=== PATIENT | male | born 1960 | race Caucasian/White ===

== ENCOUNTER 2024-12-29 22:46 | Inpatient (IN) | payer MEDICAID ==
[~2024-12-29] VITALS: Ht 162.6 cm; Wt 96.3 kg
[2024-12-29] MEDS: nitroGLYCERIN 1gm ointment UD TP ONE (23:10)
--- NOTE | 2024-12-29 23:14 | ELECTROCARDIOGRAPH REPORT ---
[facility] Test Date: 2024-12-29 Test Time: 23:12:29 Pat Name: ALEXANDRA WHITLOCK Department: [facility]-ER Patient ID: [id number] Room: Gender: M Permanent Waver: : 1960 Requested By: CHICA FERRARA Order Number: [id number] Reading MD: Measurements Intervals [place] Rate: 94 P: 54 FL: 171 QRS: -45 QRSD: 138 T: 101 QT: 396 QTc: 496 Interpretive Statements Sinus rhythm Left bundle branch block Please click the below link to view image of tracing.
[2024-12-29 23:15] LABS: MEAN PLATELET VOLUME 6.9 FL (7.4-10.4); RED CELL DISTRIBUTION WIDTH 17.8 % (11.5-14.5)
[2024-12-29 23:29] LABS: APTT 29 SECONDS (22-32); INR 1.0 INR
[2024-12-29] MEDS: heparin 25,000 UNIT/250ml bag 250 ML IV PRN (23:31)
[2024-12-29] MEDS: MESSAGE TO NURSING IV ONE (23:32)
--- NOTE | 2024-12-29 23:35 | Physician Documentation ---
History of Present Illness ~ Chief Complaint: Chest Pain Stated Complaint: TRANSFER [facility] Time Seen by MD: 23:04 Mode of Arrival: EMS, Stretcher HPI Patient presents to the emergency room as a transfer from [facility] for NSTEMI on heparin. He states he woke up this morning and began having chest pain described as severe in nature. He ended up getting nitroglycerin with significant improvement of his chest pain. Troponins positive. No current pain Medication Reconciliation Allergies: Coded Allergies: No Known Allergies (Unverified , 12/29/24) Review of Systems ROS All review of systems negative except as per HPI Physical Exam Vital Signs: Temperature: 97.9, Source: Oral, Heart Rate: 99, Respiratory Rate: 16, BP: 97/67, Pulse Oximetry: 94, Weight: 96.300 Oxygen Flow Rate: 0 Physical Exam General: Patient is awake, alert, oriented x4 in no acute distress Head: Normocephalic and atraumatic. Eyes: Conjunctival normal. EOMI. PERRL. ENT: Mucous membranes moist. Neck: Supple, trachea is midline. Chest: Clear to auscultation bilaterally without rales, rhonchi, or wheezes. There is no accessory muscle use or retractions. Cardiac: RRR without murmurs, gallops, or rubs. Abd: Soft, nondistended, nontender, with normoactive bowel sounds. No guarding, rebound, or rigidity. Extremities: Normal strength. Normal range of motion. No deformities or edema. No calf tenderness to palpation Progress Results/Orders Results/Orders Orders - DENVER RESTREPO MD Chest,Single View (12/29/24 23:12) Monitor (12/29/24 23:02) Saline Lock (12/29/24 23:02) Oxygen (12/29/24 23:02) Hs Troponin I W Calculations (12/30/24 01:02) Hs Troponin I W Calculations (12/30/24 02:02) Heparin 25,000 Unit/250ml Bag (Heparin 2 (12/29/24 23:05) Heparin 10,000 Unit/Ml 1ml (Heparin 10,0 (12/29/24 23:05) Cbc/Diff (12/30/24 03:00) Cbc/Diff (12/31/24 03:00) Cbc/Diff (01/01/25 03:00) Cbc/Diff (01/02/25 03:00) Cbc/Diff (01/03/25 03:00) Cardiac Ptt (12/30/24 05:30) Completed Orders - DENVER RESTREPO MD Chest,Single View (12/29/24 23:12) Cbc/Diff (12/29/24 23:02) BMP (12/29/24 23:02) PBNP (12/29/24 23:02) Electrocardiogram (12/29/24 23:02) Hs Troponin I W Calculations (12/29/24 23:02) Pt Inr (12/29/24 23:04) PTT (12/29/24 23:04) Nitroglycerin Top Ointment (Nitro-Bid Ud (12/29/24 23:10) Message To Nursing (12/29/24 23:30) Message To Nursing (12/30/24 00:35) Medications Received in ER Medications (Trade) Dose Ordered Sig/Rosas Route PRN Reason Start Time Stop Time Status Last Admin Dose Admin Heparin Sodium/ Dextrose 250 ml @ 14 mls/hr [id number] PRN IV TO MAINTAIN PTT WITHIN RANGE 12/29/24 23:05 12/29/24 23:31 10 MLS/HR (heparin 10,000 unit/ml 1ml inj) bolus for correct... PRN PRN IV per protocol-CARDIAC 12/29/24 23:05 12/30/24 00:44 4,000 UNITS Vital Signs 12/29/24 12/29/24 12/29/24 22:55 23:15 23:18 Temp 97.9 Pulse 99 99 Resp 19 20 16 B/P (MAP) 99/69 97/67 (77) Pulse Ox 97 94 O2 Flow Rate 0 0 Laboratory Tests Test 12/29/24 23:05 White Blood Count 15.0 H Red Blood Count 5.37 Hemoglobin 11.9 L Hematocrit 37.2 L Mean Corpuscular Volume 69.2 L Mean Corpuscular Hemoglobin 22.1 L Mean Corpuscular Hemoglobin Concent 31.9 L Red Cell Distribution Width 17.8 H Platelet Count 336 Mean Platelet Volume 6.9 L Neutrophils (%) (Auto) 86.6 H Lymphocytes (%) (Auto) 6.9 L Monocytes (%) (Auto) 5.5 Eosinophils (%) (Auto) 0.4 Basophils (%) (Auto) 0.6 Neutrophils # (Auto) 13.0 H Lymphocytes # (Auto) 1.0 L Monocytes # (Auto) 0.8 Eosinophils # (Auto) 0.1 Basophils # (Auto) 0.1 CBC Comment Platelet Estimate Normal Red Blood Cell Morphology Perf Basophilic Stippling Anisocytosis Few Microcytosis 1+ Prothrombin Time 10.3 INR International Normalized Ratio 1.0 Activated Partial Thromboplast Time 29 Coagulation Comments Sodium Level 141 Potassium Level 4.5 Chloride Level 110 H Carbon Dioxide Level 22.6 L Anion Gap 8 Blood Urea Nitrogen 22 H Creatinine 1.44 H Estimated GFR/1.73 m2 50 BUN/Creatinine Ratio 15.3 Glucose Level 115 H Calcium Level 8.9 Troponin I High Sensitivity 12373 *H Troponin I High Sens Percent Delta Troponin I Hi Sens Absolute Change Pro-B-Type Natriuretic Peptide 6825 H Albumin 3.3 L Chemistry Comments EKG/XRAY/CT/US/VASC/MRI EKG : Additional Comment EKG interpreted by myself shows time of 2312, rate 94, sinus rhythm, left axis deviation, nonspecific ST-T changes, left bundle-branch block Chest X-Ray : Additional Comments Exam: CHEST,SINGLE VIEW CHEST RADIOGRAPH Indication: CP Technique: Single frontal view of the chest was obtained COMPARISON: None FINDINGS: Lines and Tubes: None Lungs: Right lower lobe opacity may reflect atelectasis or mild pneumonia Pleura: No effusion. No pneumothorax. Cardiomediastinal contours: Unremarkable Bones: Unremarkable IMPRESSION: 1. Right lower lobe opacity may reflect atelectasis or mild pneumonia Medical Decision Making Findings Patient presents to the emergency room for evaluation as a transfer from [facility] for NSTEMI on heparin. Heparin continued. No current chest pain. No ST elevation on EKG. We will admit for further investigation. As patient is currently asymptomatic he had not feel he requires investigation into possible aortic pathology or pulmonary embolism although these were considered Departure Admitted to Inpatient Unit: yes, to hospitalist Impression: Primary Impression: NSTEMI (non-ST elevated myocardial infarction) Condition: Guarded Referrals: NO PRIMARY CARE PROVIDER (PCP) Critical Care Note Total Time (mins): 45 Critical Care Note The very real possibility of a deterioration of this patient's condition required the highest level of my preparedness for sudden, emergent intervention. I provided critical care services, which included medication orders, frequent reevaluations of the patient's condition and response to treatment, ordering and reviewing test results, and discussing the case with various consultants. Excludes time spent performing separately billable procedures. The critical care time associated with the care of the patient was 45 minutes not counting procedures Signature Scribe Signature: No scribe Attestation: The note accurately reflects work and decisions made by me.Denver Restrepo MD 12/30/24 00:51 DENVER RESTREPO MD Dec 29, 2024 23:35
[2024-12-29 23:36] LABS: PLATELET ESTIMATE NORMAL
[2024-12-29 23:38] LABS: CREATININE 1.44 MG/DL (0.60-1.10); PRO BRAIN NATRIURETIC PEPTIDE 6825 PG/ML (0-125); TOTAL CARBON DIOXIDE 22.6 MMOL/L (24-32); eCRCL 44 ML/MIN; eGFR 50 ML/MIN
[2024-12-30] VITALS (17 sets, daily range): BP systolic 76–168; BP diastolic 43–102; PULSE 76–134; RESP 15–21; TEMP 97.5–98.2; O2SAT 89–99
[2024-12-30] MEDS: MESSAGE TO NURSING IV ONE ×3 (00:41→19:22)
[2024-12-30] MEDS: heparin 10,000 units/1 ML INJ IV PRN (00:44)
[2024-12-30] MEDS ORDERED: magnesium sulf-water 4G/100mL 100 ML IV PRN (01:15)
[2024-12-30] MEDS ORDERED: magnesium Cl slow-release 64mg tablet PO PRN (01:15)
[2024-12-30] MEDS ORDERED: ondansetron/PF 4mg/2ml inj IV PRN (01:15)
[2024-12-30] MEDS ORDERED: mag hydrox/Alum hydrox/simeth 30ml oral suspension PO PRN (01:15)
[2024-12-30] MEDS ORDERED: magnesium sulf-water 2g/50mL 50 ML IV PRN (01:15)
[2024-12-30] MEDS ORDERED: magnesium hydroxide 30ml (MOM) UD suspension PO PRN (01:15)
[2024-12-30] MEDS ORDERED: potassium Cl 40MEQ/1/2NS 520ml 520 ML IV PRN (01:15)
[2024-12-30] MEDS ORDERED: potassium Cl 20 mEq SR tablet PO PRN ×2 (01:15)
[2024-12-30] MEDS ORDERED: EMPA10TA PO (01:50)
[2024-12-30] MEDS ORDERED: SPIR25TA5 PO (01:50)
[2024-12-30] MEDS ORDERED: LEVO100T9 PO (01:50)
--- NOTE | 2024-12-30 01:56 | HISTORY AND PHYSICAL-Residence ---
History & Physical Providers to CC Resident Creating Document: RUSLAN MASON RES ~ History of Present Illness Primary Medical Doctor: [facility] Reason for Admit\\Complaint: NSTEMI History of Present Illness This is a 64-year-old male patient that was transferred from [place] for the concerns of NSTEMI. Today morning, the patient woke up with 8/10 intensity substernal chest pain with radiation to the neck that lasted for about an hour and resolved with nitroglycerin. Chest pain was associated with symptoms of dizziness and diaphoresis. On the way to his hospital via EMS, he received aspirin and IV fluids due to hypotension. Troponins had continued to up trend in [place] requiring transfer for higher level care to [facility]. He was started on a heparin drip at [place]. Patient has a newly diagnosed congestive heart failure in August 2024 due to etiology unknown but has never had a cardiac catheterization and PCI. He had his 1st appointment with the vibration analyst one week ago who referred him to [place] for an echocardiogram, this new echo had apparently shown improved ejection fraction to 35-40%. Patient is noncompliant with his lisinopril and metoprolol, only takes the levothyroxine, Aldactone and Jardiance. Denies any limitation physical activity, palpitations, presyncope or syncopal episodes. Denies any fevers, productive cough, chills, nausea or vomiting. 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 Smokes THC. Denies any other illicit drug abuse. Lives at home with his Ambulates independently without assistive devices use ROS Constitutional: Reports: diaphoresis Eyes: Reports: no symptoms reported ENT: Reports: no symptoms reported Respiratory: Reports: no symptoms reported Cardiovascular: Reports: chest pain, left arm pain, diaphoresis, lightheadedness Gastrointestinal: Reports: no symptoms reported Genitourinary: Reports: frequency, urgency Male Genitalia: Reports: no symptoms reported Neurological: Reports: no symptoms reported Musculoskeletal: Reports: no symptoms reported Integumentary: Reports: no symptoms reported Allergic/Immunologic: Reports: hives, itching Endocrine: Reports: no symptoms reported Psychiatric: Reports: no symptoms reported Exam Vitals: Vital Signs Date Time Temp Pulse Resp B/P (MAP) Pulse Ox O2 Delivery O2 Flow Rate FiO2 12/30/24 00:46 92 16 107/72 (84) 96 0 12/29/24 22:55 97.9 General: General: Awake and Alert, no acute distress. HEENT: Conjunctiva pink, Sclera clear, Mucus Membranes moist. Increased neck size, bilateral prominent humps noted Neck: Supple without masses and tenderness. Resp: Unlabored. Lungs clear to auscultation bilaterally. Heart: Regular Rate and rhythm, normal S1 and S2 without murmur, rub or gallop. Abdomen: Soft and non tender no organomegaly Extremities: No cyanosis,clubbing or edema. Cold left foot when compared to right. Pedal pulses intact Skin: Warm and Dry. Diffuse eczema present across the neck and upper chest Diagnostic Data Last Recorded Lab Results: 12/29/24230412/29/24 230 Diagnostic Data: Laboratory Tests Test 12/29/24 23:05 Prothrombin Time 10.3 SECONDS (9.0-12.0) INR International Normalized Ratio 1.0 INR Activated Partial Thromboplast Time 29 SECONDS (22-32) Coagulation Comments Advance Care Planning Advanced Care plannin - 30 Minutes Additional Plan NSTEMI: Outside facility troponins- 0.4, 3.2 [facility]- Troponin 91822, continue trending next troponins No recent viral symptoms to suspect myocarditis Blood pressure borderline; maintain map greater than 65 EKG reveals LBB. No significant ST or T-wave changes noted Echocardiogram yesterday [place] with an EF of 35-40%. Follow repeat echocardiogram and watch her wall motion abnormalities Received aspirin at [place]. Nitro PRN. On heparin drip, to be continued per ACS protocol. Currently under therapeutic APTT Metoprolol 12.5 mg b.i.d. and atorvastatin 40mg Morphine PRN for pain control if not relieved by nitro Cardiology consult in a.m. NPO for now till Cardiology recommendations Continue telemetry monitoring Leukocytosis of unknown etiology: Chest x-ray reveals right lower lobe opacity and cardiomegaly Not oxygen dependent, denies cough Awaiting UA and procal. Follow Lactic acid Blood cultures ordered No antibiotics at this time as no particular suspicion Chronic heart failure with reduced ejection fraction: POA No acute exacerbation Etiology unknown NYHA class one, AHA class B Last known EF 35-40%. Repeat echocardiogram Received 1L IVF in EMS, closely monitor for hemodynamic stability Metoprolol 12.5 mg b.i.d. Continue home medications of Jardiance. Hold Aldactone in view of JERILYN Cardiology consult in a.m. Strict I&O monitoring Acute on chronic kidney disease: Baseline unknown but prior history of CKD stage 3 to 4 Likely secondary to ATN Recently evaluated by a solidworks designer, unable to recall name Creatinine 1.4 with a BUN 22 Follow spot urine studies Closely monitor BMP, suspect worsening of renal function due to hypotension, heart catheterization and NSTEMI Nephrology will be consulted worsening function Possible prior history of diabetes: Patient reports that he was told he was diabetic Follow A1c and lipid panel Hypothyroidism: Follow repeat TSH and T4 Continue home medication of levothyroxine BPH symptoms: Ongoing symptoms of urinary incontinence chronically since the age of 51 Uses a incontinence diaper No acute changes to be made at this time Dermatitis: Across the neck Contact versus allergic Topical hydrocortisone ordered Lines: PIV Diet: NPO for now, heart healthy/renal diet when able to eat Code status: Full code DVT prophylaxis: Heparin drip Ruslan Mason PGY3, Internal medicine resident [facility] Addendum #1 Neuro: - Monitor for delirium #2 CV: Pt presents with evidence of acute coronary syndrome suggestive of NSTEMI with markedly elevated troponin. - ASA - Anticoagulation - Statin - Consider beta zoë if hemodynamically stable - Consult Cardiology Pt has evidence of CHF. - Beta zoë #3 Pulm: - Promote incentive spirometer use - Maintain O2 saturation >92% #4 GI: - Address nausea and vomiting; consider antiemetics #5 Renal: - Monitor for JERILYN - Replete electrolytes as needed - Consider adjusting medications for renal function #6 ID: - Monitor for infection; consider prophylactic measures as needed #7 Endo: - Maintain blood glucose levels 150-180 mg/dL Pt has a history of hypothyroidism. - assess thyroid function #8 Heme/Onc: - Monitor for bleeding and blood clots due to anticoagulation - Maintain Hgb >7 and platelets >10 #9 PPx: - Continue chemical DVT prophylaxis unless contraindicated due to active bleeding. I saw this patient and completed a full visual exam via audio-visual HIPAA compliant technology. Date of Service: Dec 30, 2024 Billing Provider: LISA SANCHEZ MD, DEEPANJALI, RES Dec 30, 2024 01:56 LISA SANCHEZ MD Dec 30, 2024 11:12
--- NOTE | 2024-12-30 06:28 | ELECTROCARDIOGRAPH REPORT ---
[facility] Test Date: 2024-12-30 Test Time: 02:47:51 Pat Name: ALEXANDRA WHITLOCK Department: 3rd FLOOR PCU Room: [facility] 2014 Gender: M Medical Transcriber: : 1960 Requested By: LISA SANCHEZ Order Number: [id number] Reading MD: Dr. ANA Elizalde Measurements Intervals [place] Rate: 109 P: 78 CA: 158 QRS: -37 QRSD: 142 T: 102 QT: 375 QTc: 506 Interpretive Statements Sinus tachycardia Ventricular premature complex Left bundle branch block Electronically Signed On 12-31-2024 20:18:[address] ANA Elizalde Please click the below link to view image of tracing.
[2024-12-30 06:45] LABS: LEUKOCYTE ESTERASE ,URINE NEGATIVE (Neg); NITRITES, URINE NEGATIVE (Neg); OCCULT BLOOD,URINE NEGATIVE (Neg)
[2024-12-30 06:58] LABS: UA COLLECTION TYPE NON-SPECIFIED
[2024-12-30 06:58] LABS: MEAN PLATELET VOLUME 7.3 FL (7.4-10.4); RED CELL DISTRIBUTION WIDTH 17.7 % (11.5-14.5)
[2024-12-30 07:00] LABS: CREATININE,URINE RANDOM 109.0 MG/DL; TOTAL PROTEIN,URINE RANDOM 25.0 MG/DL
[2024-12-30 07:04] LABS: URINE AMPHETAMINE SCREEN NEGATIVE (Neg); URINE BARBITUATE SCREEN NEGATIVE (Neg); URINE BENZODIAZEPINES SCREEN NEGATIVE (Neg); URINE CANNABINOID SCREEN POSITIVE (Neg); URINE COCAINE SCREEN NEGATIVE (Neg); URINE METHADONE SCREEN NEGATIVE (Neg); URINE OPIATE SCREEN POSITIVE (Neg); URINE PHENCYCLIDINE SCREEN NEGATIVE (Neg)
[2024-12-30] MEDS: K and/or MAG REPLACEMENT MC SCH (08:00)
[2024-12-30] MEDS: hydrocortisone 1% cream 28gm TP SCH (08:00)
[2024-12-30] MEDS: metoprolol tartrate 12.5mg (1/2 tablet) PO SCH (08:54)
[2024-12-30] MEDS: docusate sod 100mg capsule PO SCH (08:54)
[2024-12-30] MEDS: sodium bicarbonate 1meq/ml inj 150 ML in sodium chloride 0.45% 1,000 ML IV SCH (10:04)
[2024-12-30] MEDS: aspirin 81mg, enteric-coated 1 TAB TABLET.DR PO ONE (10:06)
[2024-12-30 10:36] LABS: CHOL/HDL RATIO 6.2 (0.00-4.99); LDL CHOLESTEROL 161 MG/DL (50-100)
[2024-12-30] MEDS ORDERED: verapamil 2.5 mg/ml inj IV ONE (11:35)
[2024-12-30] MEDS ORDERED: fentaNYL/PF 50MCG/1 ML 2ML syringe ONE (11:35)
[2024-12-30] MEDS ORDERED: midazolam 1 mg/ML 2ml injection ONE ×5 (11:35→14:49)
[2024-12-30] MEDS ORDERED: LIDOcaine 1% (10mg/ml) 2ml vial ONE ×2 (11:35→15:54)
[2024-12-30] MEDS ORDERED: heparin 1,000unit/ml 10ml vial 10 ML ONE (11:36)
[2024-12-30] MEDS ORDERED: iohexol 350 MG/ML 50ML vial IV ONE (11:36)
[2024-12-30] MEDS ORDERED: nitroGLYCERIN 500mcg/5mL D5W 5 ML IV ONE (11:36)
--- NOTE | 2024-12-30 11:57 | CONSULTATION REPORT - RESIDENT ---
Consult Providers to CC Resident Creating Document: JOSEPHNAFISAJESU RES History of Present Illness Reason for Admit\\Complaint: NSTEMI History of Present Illness 64-year-old male patient with a past medical history of CHF(in August 2024) that was transferred from [place] for NSTEMI. Endorses chest pain from the morning, substernal, rated 8/10 with radiation to the neck which lasted for 1 hour under resolved with nitroglycerin,was associated with symptoms of dizziness and diaphoresis. On the way to his hospital via EMS, he received aspirin and IV fluids due to hypotension. Troponins had continued to up trend in [place] requiring transfer for higher level care to [facility] with heparin drip. Patient has a newly diagnosed congestive heart failure in August 2024 but has never had a cardiac catheterization and PCI. He had his 1st appointment with the beader one week ago who referred him to [place] for an echocardiogram which showed improved ejection fraction to 35-40%. Patient is noncompliant with his lisinopril and metoprolol, only takes the levothyroxine, Aldactone and Jardiance. She denied slurring of speech, deviation of angle of mouth, weakness of the limbs, seizures, abdominal pain, abdominal distention, diaphoresis, palpitations, presyncope, syncope, fever, cough, chills, nausea vomiting, diarrhea, constipation. 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 Smokes THC. Denies any other illicit drug abuse. Lives at home with his Ambulates independently without assistive devices use ROS ROS Constitutional: Reports: diaphoresis Eyes: Reports: no symptoms reported ENT: Reports: no symptoms reported Respiratory: Reports: no symptoms reported Cardiovascular: Reports: chest pain, left arm pain, diaphoresis, lightheadedness Gastrointestinal: Reports: no symptoms reported Genitourinary: Reports: frequency, urgency Male Genitalia: Reports: no symptoms reported Neurological: Reports: no symptoms reported Musculoskeletal: Reports: no symptoms reported Integumentary: Reports: no symptoms reported Allergic/Immunologic: Reports: hives, itching Endocrine: Reports: no symptoms reported Psychiatric: Reports: no symptoms reported Exam Vitals: Vital Signs Date Time Temp Pulse Resp B/P (MAP) Pulse Ox O2 Delivery O2 Flow Rate FiO2 12/30/24 10:57 97.5 76 17 95/70 (78) 93 Nasal Cannula 2.0 General: General: Awake and Alert, no acute distress. HEENT: Conjunctiva pink, Sclera clear, Mucus Membranes moist. Increased neck size, bilateral prominent humps noted Neck: Supple without masses and tenderness. Resp: Unlabored. Lungs clear to auscultation bilaterally. Cardiovascular system: Regular Rate and rhythm, normal S1 and S2 . Ejection systolic murmur rub or gallop. Gastrointestinal: Soft and non tender no organomegaly Extremities: No cyanosis,clubbing or edema. Cold left foot when compared to right. Pedal pulses intact Skin: Warm and Dry. Diffuse eczema present across the neck and upper chest Diagnostic Data Last Recorded Lab Results: 12/30/24 0622 12/30/24 0622 Diagnostic Data: Laboratory Tests Test 12/29/24 23:05 12/30/24 06:22 Prothrombin Time 10.3 SECONDS (9.0-12.0) INR International Normalized Ratio 1.0 INR Activated Partial Thromboplast Time 29 SECONDS (22-32) APTT (Heparin Protocol) 34 SECONDS (45-60) L Coagulation Comments Additional Plan Acute coronary syndrome NSTEMI EKG revealed left bundle branch block. [place] [address] [place] [address]. ProBNP is 6825. Pressures are in soft side. Echocardiogram yesterday [place] with an EF of 35-40%. Follow repeat echocardiogram and watch her wall motion abnormalities Received aspirin at [place]. Nitro PRN. On heparin drip, to be continued per ACS protocol. Currently under therapeutic APTT Echocardiogram on 12/30/2024 Showed mild dilatation of the left ventricle with mild concentric hypertrophy. Systolic function is severely decreased. LVEF of 30%. [place] [address], we planned for cardiac catheterization. Continue heparin drip Start atorvastatin 80 mg, aspirin 81 mg A1c is 6.1 and LDL is 161 Chronic heart failure with reduced ejection fraction: POA NYHA class one, AHA class B Last known EF 35-40%. Repeat echocardiogram Received 1L IVF in EMS, closely monitor for hemodynamic stability Metoprolol 12.5 mg b.i.d.(hold for blood pressures less than 100 x 60 mm of hg. Hold Jardiance and Aldactone. Acute on chronic kidney disease: Patient needs to go for cardiac catheterization so In view of bad kidney numbers, we started soda bicarb drip, Mucomyst 600 mg p.o. b.i.d. Consult electric motor control assembler Hypothyroidism: BPH Dermatitis: Plan per hospitalist team Disposition: We will proceed for cardiac catheterization after taking consent and we explained his Ms.Joanne WHITLOCK OVER the telephone about the possible complications of the procedure . both patient and his agreed for the cardiac catheterization procedure Jesu Tomas IM resident, PGY 2 Cardiology Patient seen and examined by Dr. PRECIADO with resident physician in the morning. His clinical symptomatology, EKG and troponins were reviewed. Cardiac catheterization as soon as possible was recommended to the patient. After discussing risks benefits alternative options patient agreed to proceed with the same. Cardiac catheterization revealed severe LV systolic dysfunction ejection fraction of 15%, severe MR, elevated LVEDP and pulmonary capillary wedge pressure, left main moderate disease, circumflex 100% occluded, lad diagonal bifurcation 90% narrowing diagonal mid 80% narrowing RCA with moderate disease with l [id number] collaterals. Immediately Cardiothoracic surgeon Dr. Melisa Diallo was consulted. He came to the lab nurse and reviewed the angiogram. He already had an ongoing case. He recommended insertion of Impella and transfer the patient to tertiary care center in view of his severe three-vessel disease, LV dysfunction, and mitral regurgitation. Subsequently Impella was placed patient was put on IV dopamine and dobutamine for blood pressure support. Subsequently he was intubated by brazer helper induction Dr. Minaya. Patient was transferred to [facility] under Dr. Snow and Dr. Robin Arnold. All the about developments including the findings were discussed with patient's over phone since she could not come to the hospital because of her health care related disability. Sepsis Screening Reassessment Date: Dec 30, 2024 Date of Service: Dec 30, 2024 Billing Provider: UMANG HALL MD, VENKATESH, [facility] Dec 30, 2024 11:57 UMANG HALL MD Dec 30, 2024 19:40
[2024-12-30] MEDS ORDERED: phenylephrine 10mg/ml inj. ONE (13:07)
[2024-12-30] MEDS ORDERED: DOPamine 400mg/D5W 250ml 250 ML IV ONE (13:11)
[2024-12-30] MEDS ORDERED: LIDOcaine 1% 30ml preserv. free vial ONE (13:19)
[2024-12-30] MEDS ORDERED: dextrose 5% water 500ml 500 ML ONE (13:30)
[2024-12-30] MEDS ORDERED: heparin 1,000 UNITS/NS 500ml 500 ML ONE (13:40)
[2024-12-30] MEDS ORDERED: DOBUTamine-DoBUTrex 500mg/D5W 250 ML IV ONE (14:54)
[2024-12-30] MEDS ORDERED: nitroGLYCERIN-Tridil 50MG/D5W 250 ML IV ONE (14:57)
--- NOTE | 2024-12-30 15:42 | DISCHARGE SUMMARY ---
Discharge Summary Providers to Chief complaint, dizziness ~ Discharge Summary Assessment Non-STEMI Status post cardiac catheterization today Severe mitral regurgitation Severe hypotension Impella device placed Severe left main coronary artery disease Heart failure with reduced ejection fraction , 10% today Hypothyroidism CKD stage III Stable for transferred to higher level of care Admission Diagnosis: NSTEMI Admission Diagnosis Comment: Non-STEMI Status post cardiac catheterization today Severe mitral regurgitation Severe hypotension Impella device placed Severe left main coronary artery disease Heart failure with reduced ejection fraction , 10% today Hypothyroidism CKD stage III Stable for transferred to higher level of care Hospital Course DATE OF ADMISSION: December 30, 2024 DATE OF DISCHARGE: December 30, 2024 Discharge Diagnosis\Comment: Non-STEMI Status post cardiac catheterization today Severe mitral regurgitation Severe hypotension Impella device placed Severe left main coronary artery disease Heart failure with reduced ejection fraction , 10% today Hypothyroidism CKD stage III Stable for transferred to higher level of care Operations\Procedures: Cardiac catheterization, Impella device placed Consultants: [facility] Department Supervisor Complications: Severe hypotension, severe systolic CHF ejection fraction 10% Condition on DC: Stable for transfer Discharge Summary: This is a 64-year-old male patient that was transferred from [place] for the concerns of NSTEMI. Today morning, the patient woke up with 8/10 intensity substernal chest pain with radiation to the neck that lasted for about an hour and resolved with nitroglycerin. Chest pain was associated with symptoms of dizziness and diaphoresis. On the way to his hospital via EMS, he received aspirin and IV fluids due to hypotension. Troponins had continued to up trend in [place] requiring transfer for higher level care to [facility]. He was s tarted on a heparin drip at [place]. Patient has a newly diagnosed congestive heart failure in August 2024 due to etiology unknown but has never had a cardiac catheterization and PCI. He had his 1st appointment with the water commissioner one week ago who referred him to [facility] for an echocardiogram, this new echo had apparently shown improved ejection fraction to 35-40%. Patient is noncompliant with his lisinopril and metoprolol, only takes the levothyroxine, Aldactone and Jardiance. Denies any limitation physical activity, palpitations, presyncope or syncopal episodes. Denies any fevers, productive cough, chills, nausea or vomiting. After admission patient was extensively evaluated and treated, including cardiac catheterization today which showed severe left main coronary artery disease severe mitral valve regurgitation, severe hypotension, Impella device placed, stable for transfer today on physical exam Vital signs, stable ,afebrile. Pulse Oximetry reflects adequate oxygenation. General: well developed, well nourished. Awake , alert, and oriented x4, resting comfortably in the bed, in no acute distress . Skin: Warm, dry, no pallor, no rash or petechiae. HEENT: Atraumatic, normocephalic, EOMI, anicteric sclera B; pink conjunctiva; PERRLA, normal oropharynx, moist oral and nasal mucosa. Tympanic membrane , nose , throat clear. Neck: Trachea midline. Supple, full range of motion, no JVD, bruit , hepatojugular reflex , lymphadenopathy or masses, or other lesions Cardiac: Regular rhythm, regular rate no murmurs, rubs, or gallops. Normal S1 and S2, no S3 noticed. PMI is normal. Respiratory: Equal breath sounds bilaterally, no tachypnea; lungs clear to auscultation bilaterally, no wheezing ,rub or rales, or crackles. Chest wall is symmetric and without deformity. No signs of trauma. Chest wall is nontender. No signs of respiratory distress. Resonance is normal upon percussion bilaterally. Gastrointestinal: Abdomen symmetric, non-distended, soft, non-tender, normal bowel sounds x4 quadrant, normoactive, no hepatosplenomegaly , no masses , no bruit, no flank pain bilaterally. No voluntary guarding, rebound, or rigidity. No tenderness to percussion. No pulsatile masses. Equal femoral pulses. No Pantoja's sign or McBurney point tenderness. Back; no CVA tenderness bilaterally, no deformities. Neck and back are without deformity as well. No tenderness noted on palpation of the spinous processes. Spinous processes are midline. Cervical, thoracic, and lumbar paraspinal muscles are not tender and are without spasm. : normal external genitalia, without lesions, swelling, masses or tenderness. Musculoskeletal: Extremities, normal range of motion, non-tender, muscle strength 5/5 x 4. Negative Homans signs bilaterally on lower extremity. Distal pulses full symmetrical, no clubbing, cyanosis , edema. Neurological: Speech is clear, alert, and oriented x 4. No motor or sensory deficit, deep tendon reflexes normal, cerebellar intact. Cranial nerves II-XII intact. Psych: Alert and or appropriate, normal affect. Vascular: Good distal pulses, which are equal x4; capillary refill less than 2 seconds. Lymphatic, no lymphadenopathy. *Problems/Diagnosis: (1) NSTEMI (non-ST elevated myocardial infarction) Status: Acute Total Time Spent on D/C: > 30 Minutes Date of Service: Dec 30, 2024 Billing Provider: DIONICIO MATTHEWS MD Common Visit Codes: 31022-JDF/OBS DISCH DAY >30min DIONICIO MATTHEWS MD Dec 30, 2024 15:42
[2024-12-30] MEDS ORDERED: heparin 25,000 UNIT/250ml bag 250 ML IV ONE (16:11)
--- NOTE | 2024-12-30 16:55 | PROCEDURE NOTE CC ---
Procedure Note CC Providers to CC ~ Procedure Name: Arterial Line Description: Indication: Shock Time-out: Done Consent: Family Site L Radial Anesthesia: Local Technique: Direct Puncture Complications: None EBL: 1ml Sepsis Screening Reassessment Date: Dec 30, 2024 GRACIE HARTMAN MD Dec 30, 2024 16:55
[2024-12-30 17:02] LABS: ABG BASE EXCESS -4.5 mmol/L (-2.0-3.0); ABG HCO3 19.9 mmol/L (21.0-28.0); ABG OXYGEN SATURATION 98.1 % (94.0-98.0); ABG PCO2 (T) 34.5 mmHg (35.0-48.0); ABG PH (T) 7.378 (7.350-7.450); ABG PO2 (T) 105.7 mmHg (83.0-108.0); ALLEN'S TEST POSITIVE; FCOHb 1.0 % (0.5-1.5); FHHb 1.9 % (0.0-5.0); FIO2 100.0 mmHg/%; FMetHb 0.3 % (0.0-1.5); FO2Hb 96.8 % (94.0-98.0); MODE VENT - AC; PATIENT TEMPERATURE 36.9; PEEP 5 cm H2O; RESPIRATORY RATE 15 b/min; TIDAL VOLUME 475 mL; TOTAL HEMOGLOBIN 12.5 G/dl (13.5-17.5)
--- NOTE | 2024-12-30 17:02 | CONSULTATION REPORT ---
Consult Providers to CC ~ History of Present Illness Reason for Admit\Complaint: NSTEMI History of Present Illness Transfer form outside with NSTEMI. S/P Cardiac Cath with Multi-vessel disease and Cardiogenic Shock. [facility] consulted who declined surgery due to high risk. [facility] contacted for possible transfer. Intubated on multiple drips. Impellar device in place for mechanical assistance. Allergies: Coded Allergies: No Known Allergies (Unverified , 12/29/24) Home Medications Home Medications Active Reported Jardiance (Empagliflozin) 10 Mg Tablet 1 Tab PO DAILY Spironolactone 25 Mg Tablet 1 Tab PO DAILY Levothyroxine Sodium 100 Mcg Tablet 1 Tab PO QAM Past Medical History Past Medical History DM, CHF, HTN ROS ROS Unable to obtain, intubated Exam Vitals: Vital Signs Date Time Temp Pulse Resp B/P (MAP) Pulse Ox O2 Delivery O2 Flow Rate FiO2 12/30/24 16:28 121 16 97 100 12/30/24 10:57 97.5 95/70 (78) Nasal Cannula 2.0 General: Critically ill HEENT: VITA Neck: Supple Chest: Crackles at bases Cardiovascular: S1-2 reg Abdomen: Soft, BS (+) Extremities: No edema Central Nervous System: Sedated Diagnostic Data Last Recorded Lab Results: 12/30/24 0622 12/30/24 0622 Diagnostic Data: Laboratory Tests Test 12/29/24 23:05 12/30/24 06:22 12/30/24 14:17 Prothrombin Time 10.3 SECONDS (9.0-12.0) INR International Normalized Ratio 1.0 INR Activated Partial Thromboplast Time 29 SECONDS (22-32) APTT (Heparin Protocol) 34 SECONDS (45-60) L Coagulation Comments Activated Clotting Time 187 SEC (101-148) H Additional Plan 1-NSTEMI with multivessel disease in Cardiogenic Shock -Supportive Tx -Cardiology on case -Awaiting transfer to Tertiary center [facility] Minaya CC time 35min Sepsis Screening Reassessment Date: Dec 30, 2024 GRACIE MINAYA MD Dec 30, 2024 17:02
--- NOTE | 2024-12-30 17:02 | RADIOLOGY REPORT ---
AP portable chest CLINICAL INDICATION: ETT tube position, impella position FINDINGS: Heart size is enlarged. Endotracheal tube tip roughly 1.25 cm above the rhys. Impella ti p slightly above the aortic root. Mild congestive changes in the lungs IMPRESSION: 1. ET tube tip and Impella tip position as described Mild congestive changes
--- NOTE | 2024-12-30 17:03 | PROCEDURE NOTE CC ---
Procedure Note CC Providers to CC ~ Procedure Name: Endotracheal Intubation Description: Indication: Resp Failure Technique: Video-assisted Sedation: Etomidate ETT: #8 secured at 24cms. CXR reviewed by myself A Rei Sepsis Screening Reassessment Date: Dec 30, 2024 GRACIE HARTMAN MD Dec 30, 2024 17:03
[2024-12-30 17:05] LABS: MEAN PLATELET VOLUME 7.0 FL (7.4-10.4); RED CELL DISTRIBUTION WIDTH 17.6 % (11.5-14.5)
[2024-12-30] MEDS: FENTANYL-0.9 % NACL/PF 100 ML IV SCH (17:06)
[2024-12-30] MEDS: propofol 1000mg/100ml bottle 100 ML IV SCH (17:17)
[2024-12-30] MEDS: milrinone (Primacor) 20mg/D5W 100 ML IV ONE (17:19)
[2024-12-30 17:25] LABS: CREATININE 1.43 MG/DL (0.60-1.10); TOTAL CARBON DIOXIDE 20.1 MMOL/L (24-32); eCRCL 44 ML/MIN; eGFR 50 ML/MIN
[2024-12-30] MEDS: epiNEPHrine inj 5 MG in normal saline 250ml IV soln 245 ML IV PRN (17:32)
[2024-12-30] MEDS: WATER IV ONE (17:35)
[2024-12-30] MEDS: SODIUM BICARBONATE IV ONE (17:35)
[2024-12-30] MEDS: DEXTROSE 5% IV ONE (17:35)
[2024-12-30 17:47] LABS: PLATELET ESTIMATE NORMAL
[2024-12-30] MEDS: albumin (human) 25% 100 ML IV solution IV ONE (18:25)
[2024-12-30] MEDS: albumin (human) 25% 100ml IV 200 ML IV ONE (19:21)
--- NOTE | 2024-12-30 19:24 | CARDIOLOGY REPORT ---
APPROVED REPORT EXAM: Limited 2D, Doppler, and color-flow Echocardiogram. Indications Limited to evaluate Impella Assist device placement Severe multivessel disease in cardiogenic shock Troponin 97413 PRO BNP 6825 [employer] is BV. MD Tonio Previous echo 12/30/24 [facility] 30% EF ; mod MR LEFT VENTRICLE LV appears moderately dilated with mild concentric hypertrophy. Overall systolic function appears sev erely reduced. Impella device correctly positioned with excellent waveforms and flow of 3.4 l/min. Se tting: P8. Device measured at 3.64 cm from inlet to AV, best visualized in apical 5 chamber. There is severe LV systolic dysfunction present. Overall estimated LVEF is about 15%. RIGHT VENTRICLE RV appears normal in size and contractility. MITRAL VALVE MV is thickened with mild annular calcification and moderate regurgitation. This probably is underest imated. GREAT VESSELS Impella outlet visualized in ascending aorta and demonstrates normal function. PERICARDIUM There is no pericardial effusion. Other Information Study Quality: Adequate Conclusion There is severe LV systolic dysfunction present. Overall estimated LVEF is about 15%. LV appears moderately dilated with mild concentric hypertrophy. Overall systolic function appears sev erely reduced. Impella device correctly positioned with excellent waveforms and flow of 3.4 l/min. Se tting: P8. Device measured at 3.64 cm from inlet to AV, best visualized in apical 5 chamber. RV appears normal in size and contractility. MV is thickened with mild annular calcification and moderate regurgitation. This probably is undere stimated. Impella outlet visualized in ascending aorta and demonstrates normal function. There is no pericardial effusion.
--- NOTE | 2024-12-30 19:29 | CARDIOLOGY REPORT ---
APPROVED REPORT EXAM: Comprehensive 2D, Doppler, and color-flow Echocardiogram. Patient Location: 301 Blood Pressure: 115/77 mmHg Heart Rate: 101 bpm Rhythm: Tachycardia Indications Congestive Heart Failure Troponin: 88229 ProBNP: 6825 CARDIAC REHABILITATION SPECIALIST: BV. Tonio MD NO Previous ECHO 2D Dimensions LA Diam3.9 cm IVSd 1.2 (0.7-1.1cm) LVDd 6.2 cm PWd 1.3 (0.7-1.1cm) IVSs 1.4 (0.8-1.2cm) LVDs 5.4 (2.5-4.0cm) PWs 1.4 (0.8-1.2cm) LVOT Diameter 1.99 (1.8-2.4cm) LVEF(%) 28.6 (>50%) Ao Asc Diam.2.86 cm IVC 20.48 mmFS (%) 13.6 % SV 55.9 ml CO 5.6 L/min M-Mode Dimensions Left Atrium(MM) 4.13 (2.5-4.0cm) Aortic Root 3.02 (2.2-3.7cm) Aortic Cusp Exc 1.41 (1.5-2.0cm) MV EPSS 1.5 (<0.5cm) Aortic Valve AoV Peak Roberto. 132.2 cm/s AoV VTI 17.4 cm AO Peak GR. 7.0 mmHg AO Mean GR. 5 mmHg LVOT VTI 17.19 cm LVOT Peak Roberto. 96.0 cm/s LINDSEY(VTI)/BSA 3.07 cm2/m2 LINDSEY (VTI) 3.07 cm2 Mitral Valve MV E Velocity 110.4 cm/s MV Peak Gr. 6 mmHg MV DECEL TIME 144 ms MV A Velocity 33.4 cm/s MV PHT 44 ms E/A Ratio 3.3 MVA (PHT) 5.00 cm2 MV KZno617.6 cm/s TDI Lateral E' P. V8.72 cm/s E/Lateral E' 12.7 Pulmonary Valve PAEDP11.61 mmHg Tricuspid Valve TR P. Velocity 251 cm/s RAP ESTIMATE 10 mmHg TR Peak Gr. 25 mmHg RVSP 35 mmHg LEFT VENTRICLE Left ventricle is mildly dilated in size with mild concentric hypertrophy. Overall systolic function is severely decreased. Significant regional wall motion abnormalities are noted. Severe LV systolic d ysfunction present. Overall estimated ejection fraction is about 20%. RIGHT VENTRICLE RV is normal size and function. ATRIA Left atrium is mildly dilated. AORTIC VALVE Trileaflet AV appears mildly sclerotic without stenosis. Trivial insufficiency. MITRAL VALVE Mitral valve leaflets are thickened with mild annular calcification. No stenosis. Severe r egurgitati on. Small mobile echodensity on the posterior mitral leaflet,? Torn chordae TRICUSPID VALVE The tricuspid valve is normal in structure with trace regurgitation. PULMONIC VALVE Pulmonic valve is grossly normal in structure with physiologic insufficiency. GREAT VESSELS The aortic root is normal in size. The ascending aorta is normal in size. The IVC is normal in size a nd collapses >50% with inspiration. The IVC is normal in size and collapses >50% with inspiration. PERICARDIUM Normal pericardium. No effusion. Other Information Study Quality: Adequate Conclusion Severe LV systolic dysfunction present. Overall estimated ejection fraction is about 20%. Significant regional wall motion abnormalities are noted. Left ventricle is mildly dilated in size with mild concentric hypertrophy. Overall systolic function is severely decreased. RV is normal size and function. Trileaflet AV appears mildly sclerotic without stenosis. Trivial insufficiency. Mitral valve leaflets are thickened with mild annular calcification. No stenosis. Severe r egurgita tion. Small mobile echodensity on the posterior mitral leaflet,? Torn chordae The tricuspid valve is normal in structure with trace regurgitation. Pulmonic valve is grossly normal in structure with physiologic insufficiency. Normal pericardium. No effusion.
[2024-12-30] MEDS ORDERED: milrinone (Primacor) 20mg/D5W 100 ML IV PRN (19:50)
[2024-12-30] MEDS ORDERED: rocuronium 10mg/ml inj IV ONE (20:50)
--- NOTE | 2024-12-31 06:29 | ELECTROCARDIOGRAPH REPORT ---
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 ANA Elizalde Measurements Intervals [place] Rate: 134 P: -65 PA: 89 QRS: -41 QRSD: 153 T: 119 QT: 352 QTc: 526 Interpretive Statements Sinus or ectopic atrial tachycardia Ventricular premature complex Left bundle branch block Electronically Signed On 12-31-2024 20:20:[address] ANA Elizalde Please click the below link to view image of tracing.
[2024-12-31] MEDS ORDERED: aspirin 81mg, enteric-coated 1 TAB TABLET.DR PO SCH (08:00)
[2024-12-31 08:13] LABS: ISTAT HGB MIX 11.9 g/dl (14.0-17.9); ISTAT Hct MIX 35 %PCV (42-52); ISTAT O2 SATURATION MIX VENOUS 68 % (60-80); ISTAT SOURCE BLNK
[2024-12-31 08:14] LABS: ISTAT HGB ART 12.6 g/dl (14.0-17.9); ISTAT Hct ART 37 %PCV (42-52); ISTAT O2 SATURATION ARTERIAL 95 % (95-98); ISTAT SOURCE BLNK
--- NOTE | 2025-01-04 12:01 | CARDIOLOGY REPORT ---
DATE OF SERVICE: 12/30/2024 DICTATING PHYSICIAN: ANA Elizalde MD CARDIAC CATHETERIZATION GENDER: Male. AGE: 64 years. HEIGHT: 163 cm. WEIGHT: 96.3 kg. BODY SURFACE AREA: 2.01 m2. INDICATION: The patient is a 64-year-old obese male with history of diabetes, hypertension, hyperlipidemia, hypothyroidism, came to the emergency room from outside hospital with non-ST elevation myocardial infarction. He was treated with IV heparin aspirin And beta blockers.. Apparently, he woke up this morning and started having severe substernal chest discomfort. The patient was found to have elevated troponin at 29,000 and increased to 49,000. His echocardiogram showed severe LV systolic ejection fraction of 15-20% with severe mitral regurgitation. After discussing risks, benefits, and alternative options, the patient underwent cardiac catheterization. Risks, benefits, and alternative options were discussed and informed consent obtained. PROCEDURE TECHNIQUE: The patient underwent left heart catheterization from right radial approach, a 6-Slovak right radial sheath. Post-procedure access site hemostasis secured with right radial band. The patient had right heart cath from right femoral approach. A 8-Slovak sheath, [place]-Ozzy catheter placed . The patient also had Impella placement from the right femoral approach under ultrasound guidance,. Impella because of severe LV dysfunction. Compromise coronary circulation and hypotension. PROCEDURES DONE: * Ultrasound-guided right radial artery and right femoral artery visualization access. * Right femoral arteriogram. * Right heart catheterization. * Left heart catheterization. * LVG. * Coronary cineangiography. * ZHAO injection. * LENI injection. * Conscious sedation time of 2 hours. * Impella intraventricular cardiac assist device insertion. FINDINGS: HEMODYNAMICS: Aortic systolic 77, diastolic 57, mean 56 mmHg, after which the patient was given dopamine and LV systolic of 101, diastolic is 20, LVEDP of 29 mmHg. Pulmonary capillary refill 39 mmHg. There is no significant gradient across the aortic valve. Right atrial mean 20 mmHg. RVH 71/18 mmHg. PA systolic 63 mmHg. Aortic oxygen saturation 95%. Pulmonary arterial oxygen saturation 68%. Cardiac output with thermodilution 7.32 litres per minute. Cardiac index of 3.64 L/min/m2 on a 5 mcg/kg/min of IV dobutamine. LVG: There is a severe LV systolic dysfunction present with an LV systolic function of 15 to 20 mmHg and severe mitral regurgitation seen. CORONARY CINEANGIOGRAPHY: Left main coronary artery is a medium caliber arising at the left aortic sinus. Circumflex ostium severe narrowing following 100% occlusion proximally. LAD at the LA diagonal bifurcation shows 90% narrowing. Diagonal is 2 mm caliber vessel with mid 80% narrowing. The patient has left main coronary artery engaged with JL4 from right radial approach. The patient has a 90% narrowing of what looks like distal left main. It continues as a ramus with moderate ostial narrowing, but ongoing LAD appears to be 100% occluded subsequently after giving rise to a diagonal. However, there appears to be another vessel arising with very proximal portion of the left main coronary artery. There is about 40% narrowing in that area and another vessel is ostial, very tight 98% narrowing and 100% occluded immediately after that. In some views, it looks like a circumflex artery. circumflex, then the other one we have to call it LAD bifurcation. Right coronary artery is a large caliber hyper-dominant vessel arising from right aortic sinus and goes to right AV groove and divides into PDA and posterolateral branches. Distal RCA has about 60% bifurcation narrowing and there are collaterals seen opacifying right to left side opacifying LAD and possibly another vessel in the circumflex distribution. Impella insertion: , in view of severe disease with LV dysfunction with severe and severe left main/LAD disease mitral regurgitation, immediately cardiothoracic surgeon, Dr. Kim's opinion was taken and since he had already a case in the OR, he recommended putting Impella and transferring the patient to a tertiary care center. Insertion of Impella : under ultrasound guidance, right femoral arterial access was obtained. The access was progressively dilated. A 14 sheath was put in and then the patient was adequately heparinized and Impella was introduced through the larger sheath. LV was crossed with 5-Slovak pigtail and then subsequently Impella was advanced over the wire into the LV and optimal position of the Impella was confirmed on fluoroscopy and subsequently Impella was connected to the pump and then the patient had a good cardiac output 3.5 L. Impella was suture to the groin. 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 IMPRESSION: A 64-year-old male with severe LV systolic dysfunction with an LV ejection fraction of 15-20%, dilated LV with severe mitral regurgitation. Elevated LVEDP of 29 mmHg and pulmonary capillary wedge pressure of 39 mmHg. No gradient across the aortic valve. Severe left-sided coronary artery disease. circumflex, which is very proximally very 100% occluded. Remaining ongoing left-sided vessel has a 90% narrowing, which divides into LAD and another branch. The RCA has a distal 50-60% narrowing. There are collaterals seen from right to left opacifying the LAD and another branch in the circumflex distribution. In view of, severe three-vessel CAD, severe LV systolic dysfunction And severe mitral regurgitation LV assist device, Impella was placed with good function of 3.6 L output per minute. The patient was subsequently transferred to ICU from there. Later on in the same day, He was airlifted to [facility] under the care of Dr. Sandro Snow and Dr. Robin Britton for further evaluation and management. ANA Elizalde MD TID: [id number] RECEIPT: [id number] MATEO/SASCHA/NATTY MTDAna Rosa
== END 2024-12-30 20:51 | disposition critical access hospital (66) | DRG 178 ==
LOC: ER 22:47 → ED HOLD 12-30 01:16 → PCU 3S 12-30 02:06 → CICU 2S 12-30 15:46
PROVIDERS: ADMIT Internal Medicine Pulmonary Disease; ATTEND Family Medicine
PROC: 03HY32Z Insertion of Monitoring Device into Upper Artery, Percutaneous Approach (ICD-10-PCS; principal; 2024-12-30)
PROC: 02HA3RZ Insertion of Short-term External Heart Assist System into Heart, Percutaneous Approach (ICD-10-PCS; 2024-12-30)
PROC: 5A0221D Assistance with Cardiac Output using Impeller Pump, Continuous (ICD-10-PCS; 2024-12-30)
PROC: 4A023N8 Measurement of Cardiac Sampling and Pressure, Bilateral, Percutaneous Approach (ICD-10-PCS; 2024-12-30)
PROC: B2111ZZ Fluoroscopy of Multiple Coronary Arteries using Low Osmolar Contrast (ICD-10-PCS; 2024-12-30)
PROC: B2151ZZ Fluoroscopy of Left Heart using Low Osmolar Contrast (ICD-10-PCS; 2024-12-30)
DX: I21.4 Non-ST elevation (NSTEMI) myocardial infarction (principal); R57.0 Cardiogenic shock; N17.9 Acute kidney failure, unspecified; I13.0 Hypertensive heart and chronic kidney disease with heart failure and stage 1 through stage 4 chronic kidney disease, or unspecified chronic kidney disease; I95.9 Hypotension, unspecified; I50.22 Chronic systolic (congestive) heart failure; E11.22 Type 2 diabetes mellitus with diabetic chronic kidney disease; D72.829 Elevated white blood cell count, unspecified; L30.8 Other specified dermatitis; E03.9 Hypothyroidism, unspecified; I25.10 Atherosclerotic heart disease of native coronary artery without angina pectoris; I34.0 Nonrheumatic mitral (valve) insufficiency; N18.30 Chronic kidney disease, stage 3 unspecified; F17.210 Nicotine dependence, cigarettes, uncomplicated; Z91.199 Patient's noncompliance with other medical treatment and regimen due to unspecified reason
CPT/HCPCS: 33990; 36415; 36600; 71045; 76937; 80048; 80053; 80061; 80305; 81003; 82570; 82803; 83036; 83605; 83880; 84132; 84133; 84145; 84156; 84300; 84439; 84443; 84478; 84484; 85008; 85014; 85018; 85025; 85347; 85384; 85610; 85730; 87040; 87081; 93005; 93306; 93308; 93460; 94002; 94760; 96365; 99152; 99153; 99291; A4314; A6213; A6258; A6449; A6590; C1725; C1751; C1760; C1894; G0378; J0169; J1250; J1265; J1644; J1938; J2003; J2250; J2371; J2704; J3010; J3490; J7040; J7050; J7060; J7070; P9047; Q9967